=== PATIENT | female | born 1945 | race Caucasian/White ===

== ENCOUNTER → 2016-08-14 | Outpatient (CLI) | payer MEDICARE, BC | LOC: MC.RAD 07:00 | DX: Z12.31 Encounter for screening mammogram for malignant neoplasm of breast (principal); Z85.3 Personal history of malignant neoplasm of breast ==

== ENCOUNTER → 2016-08-19 | Outpatient (CLI) | payer MEDICARE, BC | LOC: MC.RAD 13:19 | DX: N60.02 Solitary cyst of left breast (principal); N63 Unspecified lump in breast; Z85.3 Personal history of malignant neoplasm of breast ==

== ENCOUNTER → 2017-08-24 | Outpatient (CLI) | payer MEDICARE, BC | LOC: MC.RAD 07:33 | DX: Z12.31 Encounter for screening mammogram for malignant neoplasm of breast (principal); Z98.890 Other specified postprocedural states; Z85.3 Personal history of malignant neoplasm of breast ==

== ENCOUNTER → 2018-09-19 | Outpatient (CLI) | payer MEDICARE, BC | LOC: MC.RAD 08:15 | DX: Z12.31 Encounter for screening mammogram for malignant neoplasm of breast (principal); Z85.3 Personal history of malignant neoplasm of breast ==

== ENCOUNTER → 2019-09-22 | Outpatient (CLI) | payer MEDICARE, BC | LOC: MC.RAD 08:21 | DX: Z12.31 Encounter for screening mammogram for malignant neoplasm of breast (principal); Z98.890 Other specified postprocedural states; Z98.82 Breast implant status; Z85.3 Personal history of malignant neoplasm of breast ==

== ENCOUNTER → 2020-09-30 | Outpatient (CLI) | payer MEDICARE, BC ==
[~2020-09-30] MED LIST: ADULT MULTIVIT1 EACH PO; ALEVE 220MG220 MG; NORCO 325 MG-51 TAB PO; VTAMINC250TA PO
== END ==
LOC: MC.RAD 07:38
DX: Z12.31 Encounter for screening mammogram for malignant neoplasm of breast (principal); N64.89 Other specified disorders of breast

== ENCOUNTER → 2020-10-04 | Outpatient (CLI) | payer MEDICARE, BC | LOC: MC.RAD 13:57 | DX: C50.812 Malignant neoplasm of overlapping sites of left female breast (principal); N63.21 Unspecified lump in the left breast, upper outer quadrant ==

== ENCOUNTER → 2020-10-08 | Outpatient (CLI) | payer MEDICARE, BC | LOC: MC.RAD 06:59 | DX: C50.912 Malignant neoplasm of unspecified site of left female breast (principal); Z98.82 Breast implant status | CPT/HCPCS: A4648 ==

== ENCOUNTER → 2020-10-15 | Outpatient (CLI) | payer MEDICARE, BC | LOC: MC.RAD 13:00 | DX: Z90.12 Acquired absence of left breast and nipple (principal); C50.812 Malignant neoplasm of overlapping sites of left female breast ==

== ENCOUNTER 2020-10-16 11:45 | Day surgery (SDC) | payer MEDICARE, BC ==
[~2020-10-16] VITALS: Ht 160 cm; Wt 83.0 kg
[2020-10-16] MEDS ORDERED: VTAMINC250TA PO (12:25)
[2020-10-16] MEDS ORDERED: ADULT MULTIVIT1 EACH PO (12:27)
[2020-10-16] MEDS ORDERED: ALEVE 220MG220 MG (12:28)
[2020-10-16 13:15] VITALS: BP 152/72; PULSE 53; TEMP 98.6
[2020-10-16] MEDS ORDERED: NORCO 325 MG-51 TAB PO (15:43)
[2020-10-16 16:15] VITALS: BP 149/71; PULSE 53; TEMP 98.5
--- NOTE | 2020-10-16 16:15 | NUR ---
Patient returned to room via cart. Alert and oriented. Postop vitals start. Dressing clean and dry. Pepsi and muffin provided. Patient denies any discomfort or needs.
--- NOTE | 2020-10-16 16:15 | NUR ---
Spoke with patient about irregular heart rate reported by PACU nurse. Advised to seek care if symptoms arise and to report to primary physician.
[2020-10-16 16:30] VITALS: BP 146/62; PULSE 58
--- NOTE | 2020-10-16 16:30 | NUR ---
Patient sitting up in bed, alert and oriented. Denies discomfort. Tolerating food and drink well.
[2020-10-16 16:45] VITALS: BP 144/72; PULSE 50
--- NOTE | 2020-10-16 16:45 | NUR ---
Patient sitting up in bed. Alert and oriented. Denies discomfort. Patient up to restroom, voided without difficulty. Patient reported urine is blue. Educated patient that urine may be blue or green for first couple postop days.
--- NOTE | 2020-10-16 17:15 | NUR ---
Reviewed educations material and discharge instructions with patient and . Both verbalized understanding. D/C IV without complications. Instructed patient to dress and open door when ready.
--- NOTE | 2020-10-16 17:30 | NUR ---
Transfered patient via wheelchair to personal vehicle accompanied by .
[2020-10-16 17:42] VITALS: BP 149/71; PULSE 50; TEMP 98.8
== END 2020-10-16 17:30 | disposition home or self-care (01) ==
LOC: SDCO 11:45
DX: C50.812 Malignant neoplasm of overlapping sites of left female breast (principal); Z85.3 Personal history of malignant neoplasm of breast; M19.90 Unspecified osteoarthritis, unspecified site; Z79.899 Other long term (current) drug therapy; Z20.822 Contact with and (suspected) exposure to COVID-19; Z90.710 Acquired absence of both cervix and uterus; Z80.3 Family history of malignant neoplasm of breast; Z80.0 Family history of malignant neoplasm of digestive organs
CPT/HCPCS: A4648; J0690; J1100; J2250; J2405; J2704; J2795; J3010; J7120; Q9968

== ENCOUNTER → 2021-10-01 | Outpatient (CLI) | payer MEDICARE, BC | LOC: MC.RAD 11:06 | DX: Z85.3 Personal history of malignant neoplasm of breast (principal) ==